=== PATIENT | female | born 1995 | race Two or more races ===

== ENCOUNTER 2021-05-23 20:12 | Emergency (ER) | payer MEDICAID ==
[~2021-05-23] VITALS: Ht 172.7 cm; Wt 72.6 kg
[2021-05-23] MEDS ORDERED: diphenhydrAMINE 50 MG/1 ML VIAL IM ONE (20:45)
[2021-05-23] MEDS ORDERED: HALOPERIDOL LACTATE 5 MG/1 ML VIAL IM ONE (20:45)
[2021-05-23 20:53] LABS: HEMATOCRIT 31.1 % (31.2-41.9); MEAN CORPUSCULAR HEMOGLOBIN 26.3 uug (24.7-32.8); MEAN CORPUSCULAR VOLUME 78.5 fL (75.5-95.3); PLATELET COUNT (AUTO) 239 K/uL (179-408)
[2021-05-23 21:15] LABS: ALANINE AMINOTRANSFERASE 24 U/L (14-59); ALKALINE PHOSPHATASE 64 U/L (50-136); ASPARTATE AMINOTRANSFERASE 18 U/L (15-37); BILIRUBIN,DIRECT 0.1 mg/dL (0.0-0.2); BILIRUBIN,TOTAL 0.2 mg/dL (0.2-1.0); CARBON DIOXIDE 24 mmol/L (21-32); CHLORIDE 103 mmol/L (98-107); CREATININE 0.9 mg/dL (0.6-1.3); GLUCOSE 87 mg/dL (74-106); POTASSIUM 3.9 mmol/L (3.5-5.1); TOTAL PROTEIN, SERUM 7.4 g/dL (6.4-8.2); UREA NITROGEN, BLOOD 11 mg/dL (7-18)
[2021-05-23] MEDS ORDERED: diphenhydrAMINE 50 MG/1 ML VIAL ONE (21:23)
[2021-05-23] MEDS ORDERED: HALOPERIDOL LACTATE 5 MG/1 ML VIAL ONE (21:24)
[2021-05-23 21:38] LABS: ETHANOL < 3 MG/DL (0-0)
[2021-05-23 21:51] LABS: ACETAMINOPHEN < 2.0 ug/mL (10-30)
--- NOTE | 2021-05-23 21:55 | NUR ---
Medically cleared by Dr Garcia.
[2021-05-23 22:07] LABS: *BILIRUBIN,URIN NEGATIVE (NEGATIVE); *BLOOD, URINE NEGATIVE (NEGATIVE); *CLARITY,URINE CLEAR (CLEAR); *COLOR,URINE YELLOW (YELLOW); *KETONES,URINE NEGATIVE (NEGATIVE); *UROBILINOGEN,URINE 0.2 E.U./dl (NORMAL); LEUKOCYTE ESTERASE ,URINE NEGATIVE (NEGATIVE); NITRITE, URINE NEGATIVE (NEGATIVE); PH,URINE 7.5 (5.0-8.0); UGLUCOSE NEGATIVE (NEGATIVE)
--- NOTE | 2021-05-23 22:20 | NUR ---
Called Rudy from PET TE[facility] to eval patient/
[2021-05-23 22:28] LABS: *AMPHETAMINE, URINE NEGATIVE (NEGATIVE); *CANNABINOID, URINE NEGATIVE (NEGATIVE); *COCCAINE, URINE NEGATIVE (NEGATIVE); *OPIATE, URINE NEGATIVE (NEGATIVE); *PHENCYCLIDINE SCREEN,URINE NEGATIVE (NEGATIVE)
--- NOTE | 2021-05-23 23:02 | NUR ---
Rudy from PET [facility] here to eval patient.
[2021-05-23] MEDS ORDERED: ZIPRASIDONE MESYLATE 20 MG VIAL IM ONE ×2 (23:30→23:38)
--- NOTE | 2021-05-23 23:50 | NUR ---
KERMIT FROM PET TE[facility] PLACED PATIENT ON HOLD FOR DTS AND GD.
--- NOTE | 2021-05-24 02:25 | NUR ---
PATIENT CONSTANTLY HAD TO REDIRECTED TO GO BACK INTO ROOM, OCCASIONALLY YELLING. PROVIDED COMFORT AND SAFETY MEASURES.
[2021-05-24] MEDS ORDERED: OLANZAPINE 10 MG VIAL IM ONE ×2 (02:30→02:35)
--- NOTE | 2021-05-24 04:09 | NUR ---
CALLED DARIEN [facility]OR[facility] TO GET UP DATE ON ACCETANCE OF PATIENT, BUT AT THIS TIME INTAKE STATES THEY ARE STILL REVIEWING CHART.
[2021-05-24] MEDS ORDERED: ZIPRASIDONE MESYLATE 20 MG VIAL IM ONE ×2 (05:30→05:42)
--- NOTE | 2021-05-24 07:20 | NUR ---
Vesna from PET re-evaluating the pt. Pt remaines hyperverbal and loud. Walking in and out of the room. Nursing supervisor reinforced steel placing notified, of pt [id number] hold and requested a 1 to 1 sitter, per Alma CRESPO no sitter available at this time.
[2021-05-24] MEDS ORDERED: CETIRIZINE HCL 10 MG TABLET ONE (07:45)
[2021-05-24] MEDS ORDERED: diphenhydrAMINE 50 MG CAPSULE ONE (07:45)
[2021-05-24] MEDS ORDERED: OLANZAPINE 5 MG TABLET PO ONE ×2 (07:45→08:45)
[2021-05-24] MEDS ORDERED: diphenhydrAMINE 50 MG CAPSULE PO ONE (07:45)
[2021-05-24] MEDS ORDERED: LORAZEPAM 2 MG/1 ML VIAL ONE (07:58)
[2021-05-24] MEDS ORDERED: LORAZEPAM 2 MG/1 ML VIAL IM ONE (08:00)
[2021-05-24] MEDS ORDERED: LORAZEPAM 0.5 MG TABLET PO ONE (08:00)
[2021-05-24] MEDS ORDERED: OLANZAPINE 5 MG TABLET ONE (08:59)
--- NOTE | 2021-05-24 09:30 | NUR ---
Pt resting in bed, stating feeling sleepy. Placed pt on monitor.
--- NOTE | 2021-05-24 09:37 | NUR ---
Patient is resting comfortably in bed with eyes closed, NAD noted.
--- NOTE | 2021-05-24 11:04 | NUR ---
Pt walked to bathroom, remaines confused. Sleeping now.
--- NOTE | 2021-05-24 12:05 | NUR ---
Clinical Social Work Note MG called [facility] [place] ([phone]) for an update on referral. Sonja at [facility] informed MG that they are waiting for an open bed to accept patient. MG called [facility] ([phone]) for an update on referral. [facility] informed SW that patient is still in the queue to be reviewed. Plan: MG will continue to follow up with hospitals listed above.
--- NOTE | 2021-05-24 12:45 | NUR ---
Recieved phone call from Panchito Booth at [facility], pt to be admitted to room 143B, by Dr Burden. Pt needs to arrive after 1600.
--- NOTE | 2021-05-24 12:54 | NUR ---
Arrange BLS transfer w med for 1600 pickup.
--- NOTE | 2021-05-24 14:50 | NUR ---
Report given to Rob, from [facility]. Provided lunch tray for pt, but Pt had no appetitte at this time.
--- NOTE | 2021-05-24 16:00 | NUR ---
Pt is aware of transfer. Also spoke to pt's mother per Pt request for transfer.
--- NOTE | 2021-05-24 16:30 | NUR ---
Placed a call to [address] [place] [address] for delay of ambulance, spoke to Alberto, the unit will be here in 40 min.
--- NOTE | 2021-05-24 18:00 | NUR ---
Report given to transfering technicians and trades workers, sent all belongings w/ Pt. Pt left [facility] via [employer].
== END 2021-05-24 18:05 ==
LOC: ER 20:15 → EDBD 20:15 → ER 05-24 18:05
DX: F31.9 Bipolar disorder, unspecified (principal); F20.9 Schizophrenia, unspecified; Z88.0 Allergy status to penicillin; Z91.018 Allergy to other foods; Z20.822 Contact with and (suspected) exposure to COVID-19; Z91.14 Patient's other noncompliance with medication regimen
CPT/HCPCS: 36415; 80048; 80076; 80299; 80307; 80320; 81003; 84702; 85025; 87426; 96372 ×2; 99285; J1200; J1630; J2060; J3486 ×2; Q0163; A4663; G0480; J2358

== ENCOUNTER 2023-12-25 23:12 | Emergency (ER) | payer MEDICAID ==
[~2023-12-25] VITALS: Ht 172.7 cm; Wt 90.7 kg
[2023-12-25] MEDS ORDERED: LURA20TA PO (23:23)
[2023-12-25] MEDS ORDERED: BUPR-319 PO (23:23)
[2023-12-25] MEDS ORDERED: LURA120T PO (23:23)
[2023-12-25] MEDS ORDERED: ARIP2TAB3 PO (23:48)
[2023-12-25] MEDS ORDERED: ARIPIPRAZOLE 5 MG TABLET ONE (23:53)
[2023-12-25] MEDS: ARIPIPRAZOLE 5 MG TABLET PO ONE (23:55)
[2023-12-25 23:56] LABS: BASOPHILS # (AUTO) 0.4 K/UL (0.0-0.2); BASOPHILS % (AUTO) 4.1 % (0.0-2.0); EOSINOPHILS # (AUTO) 0.2 K/uL (0.0-0.7); EOSINOPHILS % (AUTO) 2.3 % (0.0-7.0); HEMATOCRIT 25.9 % (31.2-41.9); HEMOGLOBIN 8.8 g/dL (10.9-14.3); LYMPHOCYTES # (AUTO) 1.5 K/uL (0.8-4.8); LYMPHOCYTES % (AUTO) 15.3 % (20.5-51.5); MEAN CORPUSCULAR HEMOGLOBIN 27.6 uug (24.7-32.8); MEAN CORPUSCULAR HGB CONC 34 g/dL (32.3-35.6); MEAN CORPUSCULAR VOLUME 81.4 fL (75.5-95.3); MONOCYTES # (AUTO) 0.5 K/uL (0.1-1.30); NEUTROPHILS # (AUTO) 7.4 K/uL (1.8-8.9); NEUTROPHILS % (AUTO) 73.3 % (38.5-71.5); PLATELET COUNT (AUTO) 246 K/uL (179-408); RED BLOOD CELL COUNT(AUTO) 3.18 MIL/uL (3.63-4.92); RED CELL DISTRIBUTION WIDTH 14.9 % (12.3-17.7); WHITE BLOOD COUNT (AUTO) 10.1 K/uL (3.8-11.8)
[2023-12-26 00:09] LABS: ALANINE AMINOTRANSFERASE 47 U/L (14-59); ALBUMIN 3.4 g/dL (3.4-5.0); ALKALINE PHOSPHATASE 88 U/L (50-136); ASPARTATE AMINOTRANSFERASE 30 U/L (15-37); BILIRUBIN,TOTAL 0.2 mg/dL (0.2-1.0); CALCIUM 8.5 mg/dL (8.5-10.1); CARBON DIOXIDE 24 mmol/L (21-32); CHLORIDE 102 mmol/L (98-107); CREATININE 0.8 mg/dL (0.6-1.3); GLUCOSE 110 mg/dL (74-106); POTASSIUM 3.7 mmol/L (3.5-5.1); SODIUM SERUM 137 mmol/L (136-145); TOTAL PROTEIN, SERUM 7.1 g/dL (6.4-8.2); UREA NITROGEN, BLOOD 15 mg/dL (7-18)
[2023-12-26] MEDS ORDERED: FERR-68 PO (00:16)
[2023-12-26 00:17] LABS: PREGNANCY TEST SERUM QUAN < 1 miul/L (0-6)
[2023-12-26 00:20] LABS: *AMPHETAMINE, URINE NEGATIVE (NEGATIVE); *BARBITURATE, URINE NEGATIVE (NEGATIVE); *BENZODIAZEPINE, URINE NEGATIVE (NEGATIVE); *CANNABINOID, URINE NEGATIVE (NEGATIVE); *COCCAINE, URINE NEGATIVE (NEGATIVE); *OPIATE, URINE NEGATIVE (NEGATIVE); *PHENCYCLIDINE SCREEN,URINE NEGATIVE (NEGATIVE); FENTANYL, URINE NEGATIVE (NEGATIVE)
[2023-12-26] MEDS ORDERED: LORAZEPAM 1 MG TABLET ONE (00:20)
[2023-12-26] MEDS: LORAZEPAM 0.5 MG TABLET PO ONE (00:22)
[2023-12-26 00:50] VITALS: BP 142/87; TEMP 97.1; O2SAT 99
== END 2023-12-26 00:55 | disposition home or self-care (01) ==
LOC: ER 23:24
DX: F41.9 Anxiety disorder, unspecified (principal); N93.9 Abnormal uterine and vaginal bleeding, unspecified; D50.0 Iron deficiency anemia secondary to blood loss (chronic); F20.9 Schizophrenia, unspecified; F31.9 Bipolar disorder, unspecified; R10.2 Pelvic and perineal pain; Z79.899 Other long term (current) drug therapy; Z88.0 Allergy status to penicillin
CPT/HCPCS: 36415; 85025; A4606; A4663